=== PATIENT | female | born 1940 | race Hispanic/Latino ===

== ENCOUNTER → 2017-12-30 | Outpatient (CLI) | payer MEDICARE ==
--- NOTE | 2018-01-09 12:59 | Polysomnography ---
DATE OF STUDY: December 30, 2017 TITRATION STUDY Ms. Burkett is a 77-year-old lady, a patient of Dr. Gerda Quick, who underwent a titration polysomnography report at [facility] sleep lab. For this study, patient was in the bed for 439 minutes. Total sleep time was 340 minutes. Sleep efficiency was 78% of time. Sleep onset was within 8 minutes. REM latency was 102%. Patient underwent desensitization procedure and subsequently was started on CPAP of 5 cm of water and increased to 11 cm of water. Patient was having trouble with the CPAP pressure, and the settings were changed to the BiPAP. The rate was increased to 13/9 cm of water. However, even at that pressure patient had significantly elevated AHI of 21.4. However, the time on the sleep was low. Based on the current study, patient can be initiated on the BiPAP of 13/9 cm of water with a ResMed AirFit F10 mask, size medium. However, she needs to be evaluated within 2 months regarding her AHI, and further adjustment can be made based on her AHI at the time. Patient will require the backup rate of 12. During this study, patient still exhibited a PLM index of 18.7 events per hour. She was in stage 1 for 5.4% of the sleep time, stage 2 for 70% of the sleep time, stage 3 for 7% of the sleep time, and the stage REM was 18% of the sleep time. There was a significant heart rate variability going from 25 beats to 160 beats per minute. Most of the time patient spent was on the right side of her body for the sleep. Supine time was 24%. RECOMMENDATION 1. Based on this study, it seems like the patient really had a difficult time tolerating noninvasive positive pressure ventilatory support. She may require significant teaching in the desensitization period. Although we are starting the BiPAP at 13/9 with a backup rate of 12, we may have to readjust the pressure and the setting. This particular patient will require evaluation by the sleep specialist. 2. Weight reduction will be appropriate. If you have any questions, please contact me at [phone]. Job#: [id number]
== END ==
LOC: SLEEP 19:37
PROVIDERS: ATTEND Internal Medicine
DX: G47.33 Obstructive sleep apnea (adult) (pediatric) (principal)
CPT/HCPCS: 95811

== ENCOUNTER → 2018-05-21 | Outpatient (CLI) | payer MEDICARE ==
--- NOTE | 2018-05-21 10:13 | Diagnostic Imaging Report ---
EXAMINATION: MRI of the brain without contrast. HISTORY: Syncope and collapse. COMPARISON: None. TECHNIQUE: Sagittal T2; axial DWI, T2, FLAIR, T1-IR, T2 gradient echo; coronal FLAIR. IMAGE QUALITY: Adequate. FINDINGS: Parenchyma: 1. Few scattered and mildly compressing periventricular, tam radiata and centrum semiovale white matter T2 and FLAIR hyperintense foci, most likely nonspecific chronic microvascular ischemic changes. 2. No mass, hemorrhage, acute or chronic infarcts. Skull: Unremarkable. Vessels: Expected flow voids present in the major arteries and dural sinuses. Extra-axial spaces: No abnormal signal intensity or mass effect. Brain volume: Within normal limits for age. Ventricles: No hydrocephalus or displacement. Foramen magnum: Unremarkable. Sella: Unremarkable. Paranasal / mastoid sinuses: No significant inflammatory disease. IMPRESSION: Mild chronic microvascular ischemic changes. Otherwise no intracranial abnormalities, particularly no acute infarcts. Signed by: Dr. Luci Hu M.D. on 05/21/2018 10:09 AM
== END ==
LOC: MRI 07:15
PROVIDERS: ATTEND Internal Medicine
DX: R55 Syncope and collapse (principal); G43.909 Migraine, unspecified, not intractable, without status migrainosus
CPT/HCPCS: 70551

== ENCOUNTER → 2019-06-25 | Day surgery (SDC) | payer MEDICARE ==
[2019-06-18 10:28] LABS: BASOPHILS % 0.6 % (0.0-1.0); EOSINOPHILS # (AUTO) 0.1 (0.0-0.4); EOSINOPHILS % 1.8 % (0.0-6.0); HEMATOCRIT 39.1 % (34.2-44.1); HEMOGLOBIN 13.5 g/dL (12.0-16.0); LYMPHOCYTES # (AUTO) 2.4 (1.0-3.2); LYMPHOCYTES % 36.8 % (18.0-39.1); MEAN CORPUSCULAR HEMOGLOBIN 33.5 pg (28-32); MEAN CORPUSCULAR HGB CONC 34.5 g/dL (31-35); MONOCYTES # (AUTO) 0.4 (0.2-0.8); MONOCYTES % 6.4 % (4.4-11.3); NEUTROPHILS # (AUTO) 3.6 (2.1-6.9); NEUTROPHILS % 54.2 % (38.7-80.0); PLATELET COUNT 258 x10e3/uL (140-360); RED BLOOD COUNT 4.03 x10e6/uL (3.6-5.1); RED CELL DISTRIBUTION WIDTH 13.2 % (11.7-14.4)
[2019-06-18 10:42] LABS: ANION GAP 13.7 mmol/L (8-16); BLOOD UREA NITROGEN 15 mg/dL (7-26); BUN/CREATININE RATIO 17 (6-25); CALCIUM 9.2 mg/dL (8.4-10.2); CARBON DIOXIDE 25 mmol/L (22-29); CHLORIDE 102 mmol/L (98-107); CREATININE, SERUM 0.86 mg/dL (0.57-1.11); EST GLOMERULAR FILTRATION RATE > 60 ML/MIN (60-); GLUCOSE 90 mg/dL (74-118); POTASSIUM 3.7 mmol/L (3.5-5.1); SODIUM 137 mmol/L (136-145)
--- NOTE | 2019-06-18 12:00 | Diagnostic Imaging Report ---
EXAMINATION: CHEST 2 VIEWS INDICATION: Pre-operative COMPARISON: None FINDINGS: LINES/TUBES:None LUNGS:The lungs are well-inflated. No focal consolidation or pulmonary edema. PLEURA:No pleural effusion or pneumothorax. MEDIASTINUM:The cardiomediastinal silhouette appears normal in size and shape. BONES/SOFT TISSUES:No acute osseous injury. Degenerative changes of the visualized spine. ABDOMEN:No free air under the diaphragm. IMPRESSION: No focal pneumonia or pulmonary edema. Signed by: Carolyn Patel MD on 06/18/2019 11:57 AM
[~2019-06-25] MED LIST: BUPIVACAINE 0.5%/EPI 30 ML SDV INJ ONE; CEFAZOLIN SOD 1 GM/NS 50ML 100 ML IV ONE; DEXAMETHASONE SOD PHOS INJ 4 MG/ML VIAL ONE; FENTANYL CITRATE/PF 100MCG/2 ML INJ ONE; GLYCOPYRROLATE INJ 1MG/ 5 ML SYR ONE; KETOROLAC TROMETHAMINE 30 MG/ML VIAL ONE; LASIX40 MG PO; LIDOCAINE HCL 2% LOCAL INJ 5 ML SDV VIAL INJ ONE; MELOXICAM7.5 MG PO; ONDANSETRON HCL INJ 2MG/ML 2ML 2 MG/ML VIAL ONE; PANTOPRAZOLE SO40 MG PO; PROPOFOL IV EMULSION 10 MG/ML 20 ML VIAL ONE; SEVOFLURANE INHAL SOLN 250 ML PEN BTL ONE; ULTRAM 50MG50 MG PO; calcium PO
--- OUTSIDE RECORDS SUMMARY | 2019-06-25 10:05 | XMS REPORT ---
Author Author [facility] Address Unknown Phone Unavailable Care Team Providers Care Assembler [place] Name Role Phone HERMINIA PATE Unavailable Unavailable Daryn JOHN Unavailable Unavailable Problems This patient has no known problems. Allergies, Adverse Reactions, Alerts This patient has no known allergies or adverse reactions. Medications This patient has no known medications. Results Test Description Test Time Test Comments Text Results Atomic Results Result Comments CHEST 2 VIEWS 2019-06-18 11:56:00 [place] [address] Patient Name: GABRIELLE MEYERS MR #: [id number] : 1940 Age/Sex: 79/F Req #: [id number] Adm Physician: Ordered by: HERMINIA PATE MD Report #: [id number] Location: OR Room/Bed: Procedure: [id number] DX/CHEST 2 VIEWS Exam Date: 06/18/19 Exam Time: 1035 REPORT STATUS: Signed EXAMINATION: CHEST 2 VIEWS INDICATION: Pre-operative COMPARISON: None FINDINGS: LINES/TUBES:None LUNGS:The lungs are well-inflated. No focal consolidation or pulmonary edema. PLEURA:No pleural effusion or pneumothorax. MEDIASTINUM:The cardiomediastinal silhouette appears normal in size and shape. BONES/SOFT TISSUES:No acute osseous injury. Degenerative changes of the visualized spine. ABDOMEN:No free air under the diaphragm. IMPRESSION: No focal pneumonia or pulmonary edema. Signed by: Sandy Valadez MD on 06/18/2019 11:57 AM Dictated By: SANDY VALADEZ MD 56 Transcribed By: ALBERT on 06/18/191156 COPY TO: HERMINIA PATE MD MRI BRAIN WO 2018-05-21 10:08:00 [place] [address] Patient Name: GABRIELLE MEYERS MR #: [id number] : 1940 Age/Sex: 78/F Req #: [id number] Adm Physician: Ordered by: CHANTELLE JOHN MD Report #: [id number] Location: MRI Room/Bed: Procedure: [id number] MRI/MRI BRAIN WO Exam Date: Exam Time: REPORT STATUS: Signed EXAMINATION: MRI of the brain without contrast. HISTORY: Syncope and collapse. COMPARISON: None. TECHNIQUE: Sagittal T2; axial DWI, T2, FLAIR, T1-IR, T2 gradient echo; coronal FLAIR. IMAGE QUALITY: Adequate. FINDINGS: Parenchyma: 1. Few scattered and mildly compressing periventricular, tam radiata and centrum semiovale white matter T2 and FLAIR hyperintense foci, most likely nonspecific chronic microvascular ischemic changes. 2. No mass, hemorrhage, acute or chronic infarcts. Skull: Unremarkable. Vessels: Expected flow voids present in the major arteries and dural sinuses. Extra-axial spaces: No abnormal signal intensity or mass effect. Brain volume: Within normal limits for age. Ventricles: No hydrocephalus or displacement. Foramen magnum: Unremarkable. Sella: Unremarkable. Paranasal / mastoid sinuses: No significant inflammatory disease. IMPRESSION: Mild chronic microvascular ischemic changes. Otherwise no intracranial abnormalities, particularly no acute infarcts. Signed by: Dr. Akbar Hu M.D. on 05/21/2018 10:09 AM Dictated By: AKBAR HU MD 100 Transcribed By: ALBERT on 05/21/18 100 COPY TO: CHANTELLE JOHN MD CT BRAIN WO [place] [address] Patient Name: GABRIELLE MEYERS MR #: [id number] : 1940 Age/Sex: 77/F Req #: [id number] Adm Physician: Ordered by: CHANTELLE JOHN MD Report #: [id number] Location: CT Room/Bed: Procedure: [id number] CT/CT BRAIN WO Exam Date: 10/23/17 Exam Time: 1533 REPORT STATUS: Signed EXAMINATION: Head CT HISTORY: Head pain radiating into the left eye COMPARISON: None. TECHNIQUE: Multidetector axial images were obtained without contrast from the foramen magnum to the vertex . The images were reconstructed using brain and bone algorithms. Thin section brain images were reformatted into coronal and sagittal planes. Intravenous contrast: None. Motion/streaking artifact limits the evaluation of the skull base and posterior cranial fossa. FINDINGS: Parenchyma: 1. Mildly compressive and a few scattered white matter hypodensities, most likely nonspecific chronic microvascular ischemic changes. 2. No mass or hemorrhage. No CT evidence of acute territorial vascular insult. Extra-axial spaces:No abnormal density. No extra-axial fluid collections Brain volume: Normal for age. Ventricles: No hydrocephalus or displacement. Arteries: No density suggestive of thrombus. Dural sinuses: No abnormal density. Extra-axial spaces: No abnormal density. Foramen magnum: No mass, Chiari malformation, or basilar invagination. Sella: No obvious mass. Paranasal/mastoid sinuses: Imaged portions unremarkable. Skull/Scalp: No lytic or blastic lesions. No fractures. IMPRESSION: 1. No intracranial mass or hemorrhage. 2. Mild white matter chronic microvascular ischemic changes. Signed by: Dr. Akbar Hu M.D. on 10/23/2017 3:58 PM Dictated By: AKBAR HU MD 57 Transcribed By: ALBERT on 10/23/171557 COPY TO: CHANTELLE JOHN MD MAMMOGRAPHY DIGITAL SCR UNI LT [place] [address] Patient Name: GABRIELLE MEYERS MR #: [id number] : 1940 Age/Sex: 77/F Req #: [id number] Adm Physician: Ordered by: CHANTELLE JOHN MD Report #: [id number] Location: MAMMO Room/Bed: Procedure: [id number] MG/MAMMOGRAPHY DIGITAL SCR UNI LT Exam Date: 09/19/17 Exam Time: 1300 REPORT STATUS: Signed #[id number] - MGSCRLT #UNILATERAL LEFT DIGITAL SCREENING MAMMOGRAM WITH CAD: 09/19/2017 Comparison is made to exam dated: 09/22/2016 mammogram - [facility]. There are scattered fibroglandular elements in the left breast. Current study was also evaluated with a Computer Aided Detection (CAD) system. There are benign calcifications in the left breast. There also is a biopsy clip in the left breast. There is a scar marker on the left breast. No significant masses, calcifications, or other findings are seen in the breast. There has been no significant interval change. IMPRESSION: BENIGN There is no mammographic evidence of malignancy. A 1 year screening mammogram is recommended. The patient will be notified by letter of the results. Paulina Weinstein Jr., D.O. cw/:09/21/2017 12:36:11 Audio/Visual Manager: Laila SPENCER (R)), [facility] letter sent: Compared to Prior B9 Mammogram BI-RADS: 2 Benign Dictated By: PAULINA WEINSTEIN DO 1236 Transcribed By: ALEENA on 09/21/17 1236 COPY TO: CHANTELLE JOHN MD CHEST 2 VIEWS [place] [address] Patient Name: GABRIELLE MEYERS MR #: [id number] : 1940 Age/Sex: 77/F Req #: [id number] Adm Physician: Ordered by: CHANTELLE JOHN MD Report #: [id number] Location: RAD Room/Bed: Procedure: [id number] DX/CHEST 2 VIEWS Exam Date: 08/21/17 Exam Time: 1240 REPORT STATUS: Signed PROCEDURE: Frontal and lateral views of the chest. COMPARISON: None. INDICATIONS: COUGH FOR 1 WEEK FINDINGS: Lines/tubes: None. Lungs: The lungs are well inflated and clear. There is no evidence of pneumonia or pulmonary edema. Pleura: There is no pleural effusion or pneumothorax. Heart and mediastinum: The heart and the mediastinum are normal. Bones: No acute bony abnormality. Remote trauma of the proximal left humerus. Degenerative changes of the thoracic spine. IMPRESSION: No acute radiographic abnormality. Dictated by: Skylar Souza M.D. on 08/21/2017 at 13:06 Electronically approved by: Skylar Souza M.D. on 08/21/2017 at 13:06 Dictated By: SKYLAR SOUZA MD 1307 Transcribed By: NAVI on 08/21/17 1307 COPY TO: CHANTELLE JOHN MD
[2019-06-25 14:20] VITALS: BP 141/72
--- NOTE | 2019-07-04 00:02 | Operative Report ---
DATE OF PROCEDURE: 07/03/2019 SURGEON: Christopher Angeles MD PREOPERATIVE DIAGNOSES: Left knee medial meniscus tear and left knee degenerative joint disease of the knee. POSTOPERATIVE DIAGNOSES: Left knee medial meniscus tear, left knee lateral meniscus tear, and left knee degenerative joint disease of the knee. OPERATIONS AND PROCEDURES PERFORMED: The patient underwent a left knee exam under anesthesia, left knee arthroscopy, left knee partial medial meniscectomy, left knee partial lateral meniscectomy, left knee chondroplasty of the patella, the trochlea, the medial femoral condyle, the medial tibial plateau, the lateral femoral condyle, and lateral tibial plateau. REHEATER: GERARD Redding ANESTHESIA: General endotracheal intubation anesthesia. IV FLUIDS: Per the anesthesia record. BRIEF DESCRIPTION OF THE PATIENT'S OPERATIVE PROCEDURE: Ms. Zimmerman was taken to the operating room, placed in supine position on the operating table. Following induction of general anesthesia as well as endotracheal intubation, the patient's left lower extremity was examined under anesthesia. She was found to have a mild effusion within the knee joint, but otherwise ligamentously stable knee. The patient's lower extremity was prepped and draped in standard surgical fashion. A two-port technique was used to provide this patient arthroscopic evaluation of the knee joint. Examination of suprapatellar pouch and medial lateral gutters found no evidence of loose bodies. There was, however, evidence of chondromalacia of the patella and trochlear surfaces. The scope was advanced to the medial compartment and the patient was noted to have a torn medial meniscus. There was also chondromalacia of the articulating surfaces. A combination of biting forceps and a motorized shaver used to resect the torn portion of meniscus. Chondroplasties of the medial femoral condyle and medial tibial plateau were performed at this time. The scope was advanced to the intercondylar notch and the anterior cruciate ligament was identified and found to be intact. Scope was advanced to the lateral compartment and there was a torn lateral meniscus. There was also chondromalacia of the articulating surfaces. A combination of biting forceps and a motorized shaver used to resect the torn portion of the lateral meniscus. Chondroplasties of the lateral femoral condyle and lateral tibial plateau performed at this time. The scope was then placed in suprapatellar pouch and a chondroplasty of the patella and trochlea was performed. The knee was then deflated with sterile normal saline. Each of the portal sites were closed using 4-0 nylon suture. The portal sites as well as knee itself were injected with 0.5% Marcaine with epinephrine. Sterile dressings were applied. The patient was awakened and taken to postanesthesia care unit in stable condition. MD GILA Ann/MELLY /[id number]
== END | disposition home or self-care (01) ==
LOC: OR 10:03
PROVIDERS: ATTEND Specialist
DX: S83.242A Other tear of medial meniscus, current injury, left knee, initial encounter (principal); S83.282A Other tear of lateral meniscus, current injury, left knee, initial encounter; M17.12 Unilateral primary osteoarthritis, left knee; M22.42 Chondromalacia patellae, left knee; G47.33 Obstructive sleep apnea (adult) (pediatric); K21.9 Gastro-esophageal reflux disease without esophagitis; I44.0 Atrioventricular block, first degree; R00.1 Bradycardia, unspecified; X58.XXXA Exposure to other specified factors, initial encounter; Z01.810 Encounter for preprocedural cardiovascular examination; Z01.812 Encounter for preprocedural laboratory examination; Z01.818 Encounter for other preprocedural examination; Z87.891 Personal history of nicotine dependence; Z68.37 Body mass index [BMI] 37.0-37.9, adult; Z85.3 Personal history of malignant neoplasm of breast; Z90.11 Acquired absence of right breast and nipple
CPT/HCPCS: 29880; 36415; 71046; 80048; 85025; 93005; J0690; J1100; J1885; J2001; J2405; J2704; J3010; J3490

== ENCOUNTER 2019-07-30 08:00 | Outpatient (RCR) | payer MEDICARE ==
[~2019-07-30 08:00] MED LIST changes: -BUPIVACAINE 0.5%/EPI 30 ML SDV INJ ONE; -CEFAZOLIN SOD 1 GM/NS 50ML 100 ML IV ONE; -DEXAMETHASONE SOD PHOS INJ 4 MG/ML VIAL ONE; -FENTANYL CITRATE/PF 100MCG/2 ML INJ ONE; -GLYCOPYRROLATE INJ 1MG/ 5 ML SYR ONE; -KETOROLAC TROMETHAMINE 30 MG/ML VIAL ONE; -LIDOCAINE HCL 2% LOCAL INJ 5 ML SDV VIAL INJ ONE; -ONDANSETRON HCL INJ 2MG/ML 2ML 2 MG/ML VIAL ONE; -PROPOFOL IV EMULSION 10 MG/ML 20 ML VIAL ONE; -SEVOFLURANE INHAL SOLN 250 ML PEN BTL ONE
== END 2019-08-05 ==
LOC: PT 08:00
PROVIDERS: ATTEND Specialist
DX: M17.12 Unilateral primary osteoarthritis, left knee (principal); M62.81 Muscle weakness (generalized); M25.562 Pain in left knee; M25.662 Stiffness of left knee, not elsewhere classified; R26.2 Difficulty in walking, not elsewhere classified

== ENCOUNTER → 2019-09-05 | Outpatient (CLI) | payer MEDICARE | LOC: MAMMO 08:03 | PROVIDERS: ATTEND Internal Medicine | DX: Z12.31 Encounter for screening mammogram for malignant neoplasm of breast (principal) ==

== ENCOUNTER → 2021-04-22 | Outpatient (CLI) | payer MEDICARE | LOC: MAMMO 10:57 | PROVIDERS: ATTEND Internal Medicine | DX: Z12.31 Encounter for screening mammogram for malignant neoplasm of breast (principal) ==

== ENCOUNTER → 2022-01-27 | Outpatient (CLI) | payer MEDICARE | LOC: DX 12:15 | PROVIDERS: ATTEND Internal Medicine | DX: M85.88 Other specified disorders of bone density and structure, other site (principal) | CPT/HCPCS: 77080 ==

== ENCOUNTER → 2022-05-12 | Outpatient (CLI) | payer MEDICARE | LOC: RAD 10:44 | PROVIDERS: ATTEND Internal Medicine | DX: M17.12 Unilateral primary osteoarthritis, left knee (principal) ==

== ENCOUNTER → 2023-01-17 | Outpatient (CLI) | payer MEDICARE | LOC: MAMMO 11:08 | PROVIDERS: ATTEND Internal Medicine | DX: Z12.31 Encounter for screening mammogram for malignant neoplasm of breast (principal) ==

== ENCOUNTER → 2023-05-04 | Outpatient (CLI) | payer MEDICARE | LOC: US 10:28 | PROVIDERS: ATTEND Internal Medicine | DX: N86 Erosion and ectropion of cervix uteri (principal) | CPT/HCPCS: 76856 ==

== ENCOUNTER → 2024-05-21 | Outpatient (REF) | payer MEDICARE | LOC: MAMMO 08:39 | PROVIDERS: ATTEND Internal Medicine | DX: Z12.31 Encounter for screening mammogram for malignant neoplasm of breast (principal) ==